=== PATIENT | male | born 1965 | race Two or more races ===

== ENCOUNTER 2019-05-13 11:59 | Emergency (ER) | payer OTHER ==
[~2019-05-13] VITALS: Ht 165.1 cm; Wt 65.8 kg
[~2019-05-13 11:59] MED LIST: CLONAZEPAM1 MG; IBUPROFEN800 MG PO; PERCOCET 5/3251 TAB PO
[2019-05-13] MEDS ORDERED: VISTARIL50 MG PO (12:26)
[2019-05-13] MEDS ORDERED: MAGNESIUM250 MG (12:26)
== END 2019-05-13 15:38 | disposition home or self-care (01) ==
LOC: ER 11:59
DX: A08.8 Other specified intestinal infections (principal); F41.8 Other specified anxiety disorders